=== PATIENT | male | born 1960 | race Caucasian/White ===

== ENCOUNTER → 2017-02-18 | Outpatient (CLI) | payer MEDICARE, MEDICAID ==
[~2017-02-18] MED LIST: AMLO-104 PO; AMLO-96 PO; ASPI-1471 PO; ATEN-1 PO; ATEN100T93 PO; ATOR40TA24 PO; BLOO-292 MC; CELE-1 PO; CLON-329 PO; CLOP75TA PO; DIAZ-308 PO; DUL20 PO; FENT-19 TD; HYDR-389 PO; HYDR-4228 PO; IBUP800T37 PO; INDO50CA92 PO; INSU100I30 SQ; ISOS30TA54 PO; KET10 PO; LEVO-85 PO; LISI-362 PO; LOR5/325 PO; LOSA100T67 PO; MELO-207 PO; METF-420 PO; METF500T4 PO; NPH,100V12 SQ; ONDA4TAB97 PO; OXYC-865 PO; OXYC-870 PO; PEN1DIS. MC; PRAM0.1225 PO; PRAM0.2524 PO; PROM-110 PO; RANI-324 PO; SYRI-1525 MC; TRAM-420 PO; TRAM100T22 PO; TRAZ-156 PO
[2017-02-18 18:01] LABS: LDL CHOLESTEROL 27 mg/dl
== END ==
LOC: LAB 16:29
PROVIDERS: ATTEND Emergency Medicine
DX: E11.9 Type 2 diabetes mellitus without complications (principal); R23.3 Spontaneous ecchymoses; I25.10 Atherosclerotic heart disease of native coronary artery without angina pectoris; E83.52 Hypercalcemia; J02.9 Acute pharyngitis, unspecified
CPT/HCPCS: 36415; 82040; 82164; 82247; 82310; 82374; 82435; 82465; 82550; 82565; 82947; 83036; 83718; 83970; 84075; 84132; 84155; 84295; 84450; 84460; 84478; 84520; 86140; 86225; 86703; 86706; 86707; 87340; 87350; 87880

== ENCOUNTER 2017-02-22 09:00 | Emergency (ER) | payer MEDICAID, MEDICARE ==
[~2017-02-22] VITALS: Ht 170.2 cm; Wt 74.8 kg
--- NOTE | 2017-02-22 09:32 | ER Report ---
History and Physical Time Seen By MD: 09:32 (JEFE NGO DO) HPI/ROS CHIEF COMPLAINT: NECK PAIN HISTORY OF PRESENT ILLNESS: Pt here today for evaluation of neck pain and stiffness. PT has long hx of back issues that he was told was degenerative disc ds. PT states this last week his neck has gotten worse. Pt denies any new trauma. Pt states usually is stiff on right side of neck and radiates to right shoulder but now has symptoms on left side as well with numbness going down his left tricep to elbow. no weakness. pt states he was seen by pcp on friday and is just waiting for his medicaid to come in to see specialist. Came to ed today due to unable to get comfortable dispite using his tramadol. REVIEW OF SYSTEMS: Constitutional: No fever, no chills. Eyes: No discharge. ENT: No sore throat. Cardiovascular: No chest pain, no palpitations. Respiratory: No cough, no shortness of breath. Gastrointestinal: No abdominal pain, no vomiting. Genitourinary: No hematuria. Musculoskeletal: + chronic back pain; + neck stiffness and pain Skin: No rashes. Neurological: No headache. + numbness to left tricep (JENIJEFE Cesar PANDA) Allergies: Coded Allergies: red dye (Verified Allergy, Severe, SOB/SWELLING/HIVES, 02/22/17) Penicillins (Verified Allergy, Unknown, HIVES, 02/22/17) Uncoded Allergies: RED CARMICHAEL (Allergy, Severe, HIVES/SOB/SWELLING, 08/31/16) Home Meds Active Scripts Nph, Human Insulin Isophane (NOVOLIN N) 100 Unit/1 Ml Vial, 35 UNIT SQ BID, #3 VIAL 11 Refills Take 35 units twice a day. Increase by 2 units twice a day until fasting glucose is 120 or less.Maximum of 100 a day. Prov:ERIKA TORREZ MD 02/20/17 Amlodipine Besylate (NORVASC) 10 Mg Tablet, 1 TAB PO QDAY, #30 TAB 11 Refills Prov:ERIKA TORREZ MD 02/18/17 Tramadol Hcl (TRAMADOL HCL) 50 Mg Tablet, 50-100 MG PO Q4-6H, #180 TAB Prov:ERIKA TORREZ MD 02/13/17 Pramipexole Di-Hcl (MIRAPEX) 0.25 Mg Tablet, 0.25 MG PO DAILY, #30 TAB 11 Refills Prov:ERIKA TORREZ MD 01/16/17 Atorvastatin Calcium (LIPITOR) 40 Mg Tablet, 1 TAB PO QDAY, #30 TAB 11 Refills Prov:ERIKA TORREZ MD 01/16/17 Meloxicam (MELOXICAM) 15 Mg Tablet, 15 MG PO QDAY, #30 TAB Prov:ERIKA TORREZ MD 01/06/17 True Metrix Glucose Test Strip (True Metrix Glucose Test Strip) 1 Each Strip, BOX MC 1-2XD, #1 11 Refills Prov:ERIKA TORREZ MD 12/11/16 Syringe & Needle,Insulin,1 Ml (INSULIN SYRINGE) 1 Each Disp.syrin, EACH MC, #60 11 Refills Administer insulin twice a day. Prov:ERIKA TORREZ MD 11/22/16 Lisinopril (LISINOPRIL) 10 Mg Tablet, 10 MG PO QDAY, #30 TAB 11 Refills Prov:ERIKA TORREZ MD 11/21/16 Metformin Hcl (METFORMIN HCL) 1,000 Mg Tablet, 1 TAB PO BID, #180 TAB 3 Refills Prov:ERIKA TORREZ MD 11/21/16 Trazodone Hcl (TRAZODONE HCL) 50 Mg Tablet, 1 TAB PO BID, #60 TAB 11 Refills Prov:ERIKA TORREZ MD 11/20/16 Atenolol (ATENOLOL) 100 Mg Tablet, 1 TAB PO QDAY, #90 TAB 3 Refills Prov:ERIKA TORREZ MD 11/20/16 Reported Medications Ondansetron Hcl (ZOFRAN) 4 Mg Tablet, 1-2 TAB PO Q8H Y for PRn, TAB 11/20/16 Clopidogrel Bisulfate (CLOPIDOGREL) 75 Mg Tablet, 1 TAB PO QDAY, TAB 11/20/16 Isosorbide Mononitrate (ISOSORBIDE MONONITRATE ER) 30 Mg Tab.er.24h, 1 TAB PO DAILY 11/20/16 Duloxetine Hcl (CYMBALTA) 20 Mg Capcr, 1 TAB PO QDAY, #5 CAP 11/20/16 Aspirin (ASPIR 81) 81 Mg Tablet.dr, 81 MG PO QDAY, TAB 12/17/13 Past Medical/Surgical History Pmhx: dm, htn, hyperlipid, cad, degenerative disc ds Pshx:non contrib (JENI,JEFE V ) Reviewed Nurses Notes: Yes Old Medical Records Reviewed: Yes (JEFE NGO DO) Hx Smoking: Yes Smoking Status: Current: Every Day Smoker Hx Substance Use Disorder: No Hx Alcohol Use: Yes (RARE) (JENI,JEFE V DO) Constitutional Vital Sign - Last 24 Hours 02/22/17 02/22/17 02/22/17 09:30 10:23 11:20 Temp 98.4 Pulse 80 66 68 Resp 16 16 16 B/P (MAP) 133/83 175/76 (109) 190/83 (118) Pulse Ox 96 94 95 O2 Delivery Room Air Room Air Room Air (NAVEEN MORELAND MD) Physical Exam General Appearance: The patient is alert, has no immediate need for airway protection and no signs of toxicity. Eyes: Pupils equal and round no pallor or injection, EOMI ENT: no pharyngeal erythema or exudates, Mucous membranes are moist Respiratory: There are no retractions, lungs are clear to auscultation. Cardiovascular: Regular rate and rhythm. pulses are equal and symmetrical Gastrointestinal: Abdomen is soft and non tender, no masses, bowel sounds normal, no guarding, no rigidity or rebound Neurological: Cranial nerves II-XII grossly intact, no sensory, minimal weakness of C7 on exam L Skin: Warm and dry, no rashes. Musculoskeletal: Neck tender paravertebral b/l with no midline vertebral tenderness Extremities are nontender, non swollen and have full range of motion. DIFFERENTIAL DIAGNOSIS: After history and physical exam differential diagnosis was considered for cervical radiculopathy, degenerative disc ds, arthriits, muscle spasms (JEFE NGO DO) Medical Decision Making EKG/Imaging Imaging FACILITY: [facility] PATIENT NAME: Flavio Mojica : 1960 MR: [id number] V: [id number] EXAM DATE: ORDERING PHYSICIAN: JEFE NGO TECHNOLOGIST: Location: [facility] [place] Patient: Flavio Mojica : 1960 Visit/Account:[id number] Date of Sevice: 02/22/2017 C-SPINE W/O CONTRAST HISTORY: Bilateral neck pain and stiffness COMPARISON STUDIES: CT scan 01/06/2012 TECHNIQUE: Axial images were obtained from the skull base through the upper thoracic spine without intravenous contrast. Coronal and sagittal reformatted images were obtained from the axial source data. One of the following dose optimization techniques was utilized in the performance of this exam: Automated exposure control; adjustment of the mA and/ or kV according to the patient's size; or use of an iterative reconstruction technique. Specific details can be referenced in the facility's radiology CT exam operational policy. FINDINGS: There is no acute fracture or dislocation of the cervical spine. Spondylitic changes are noted with facet arthropathy. At the C3-4 level, there is mild arthropathy. At the C5-6 level, there is a posterior discussed complex which causes bilateral moderate bilateral neural foraminal narrowing and mild canal stenosis. At the C6/7 level, there is at least mild bilateral neuroforaminal narrowing. Surrounding soft tissues lung apices are unremarkable. IMPRESSION: 1. No evidence for an acute fracture of the cervical spine. 2. Spondylitic changes are noted in the cervical spine worst at C5-6. If there is concern for cord or nerve root impingement, MRI is recommended. Report Dictated By: Wallace Mcneil MD at 02/22/2017 11:04 AM Report E-Signed By: Wallace Mcneil MD at 02/22/2017 11:12 AM WSN:[id number] (NAVEEN MORELAND MD) ED Course/Re-evaluation ED Course Will obtain CT. I suspect pt has degenerative disc ds and arthritis which is causing spasms and radiculopathy. Pt will require follow up by orthopedics or neurosurgery if that is true. Pt states he can not see either until his medicaid comes thru. Will give him names of our local orthopedics so he has it for follow up when ready. Decision to Disposition Date: Feb 22, 2017 (JEFE NGO DO) Decision to Disposition Date: Feb 22, 2017 Decision to Disposition Time: 11:25 (NAVEEN MORELAND MD) Depart Departure Latest Vital Signs Vital Signs Date Time Temp Pulse Resp B/P (MAP) Pulse Ox O2 Delivery O2 Flow Rate FiO2 02/22/17 11:20 68 16 190/83 (118) 95 Room Air 02/22/17 09:30 98.4 (NAVEEN MORELAND MD) Impression: Primary Impression: Cervical spondylitis with radiculitis Condition: Condition Unchanged Disposition: HOME OR SELF-CARE Referrals: ERIKA TORREZ MD (PCP) [facility] C:[facility] New Scripts Methocarbamol (ROBAXIN-750) 750 Mg Tablet 1500 MG PO QID for Muscle Relaxant, #20 TAB 0 Refills Prov: NAVEEN MORELAND MD 02/22/17 Hydrocodone Bit/Acetaminophen (HYDROCODON-ACETAMINOPHEN 5-325) 1 Each Tablet 1 EACH PO Q4-6H Y for PAIN, #12 TAB 0 Refills TAKE ONE TABLET BY MOUTH EVERY 4-6 HOURS NEEDED FOR PAIN Prov: NAVEEN MORELAND MD 02/22/17 Patient Instructions: Cervical Radiculopathy (ED) Additional Instructions: Schedule follow-up appointment with orthopedics at [facility] for further evaluation and possible treatment of your cervical radiculopathy JEFE NGO DO Feb 22, 2017 09:32 NAVEEN MORELAND MD Feb 22, 2017 11:28
[2017-02-22] MEDS ORDERED: ORPHENADRINE CITR 100 MG TABSR PO ONE (09:40)
[2017-02-22] MEDS ORDERED: APAP/HYDROCODONE 325/5 TAB PO ONE (09:40)
--- NOTE | 2017-02-22 11:15 | RADIOLOGY IMAGING REPORT ---
FACILITY: [facility] PATIENT NAME: Flavio Mojica : 1960 MR: [id number] V: [id number] EXAM DATE: ORDERING PHYSICIAN: JEFE NGO TECHNOLOGIST: Location: [facility] Patient: Flavio Mojica : 1960 Visit/Account:[id number] Date of Sevice: 02/22/2017 C-SPINE W/O CONTRAST HISTORY: Bilateral neck pain and stiffness COMPARISON STUDIES: CT scan 01/06/2012 TECHNIQUE: Axial images were obtained from the skull base through the upper thoracic spine without i ntravenous contrast. Coronal and sagittal reformatted images were obtained from the axial source data . One of the following dose optimization techniques was utilized in the performance of this exam: Autom ated exposure control; adjustment of the mA and/or kV according to the patient's size; or use of an i terative reconstruction technique. Specific details can be referenced in the facility's radiology C T exam operational policy. FINDINGS: There is no acute fracture or dislocation of the cervical spine. Spondylitic changes are noted with f acet arthropathy. At the C3-4 level, there is mild arthropathy. At the C5-6 level, there is a posterior discussed complex which causes bilateral moderate bilateral n eural foraminal narrowing and mild canal stenosis. At the C6/7 level, there is at least mild bilateral neuroforaminal narrowing. Surrounding soft tissues lung apices are unremarkable. IMPRESSION: 1. No evidence for an acute fracture of the cervical spine. 2. Spondylitic changes are noted in the cervical spine worst at C5-6. If there is concern for cord or nerve root impingement, MRI is recommended. Report Dictated By: Wallace Mcneil MD at 02/22/2017 11:04 AM Report E-Signed By: Wallace Mcneil MD at 02/22/2017 11:12 AM WSN:[id number]
[2017-02-22 11:20] VITALS: BP 190/83
[2017-02-22] MEDS ORDERED: METH-543 PO (11:27)
[2017-02-22] MEDS ORDERED: LOR5/325 PO (11:27)
[2017-02-25] MEDS ORDERED: META800T18 PO (13:23)
== END 2017-02-22 11:35 | disposition home or self-care (01) ==
LOC: ER 09:24
DX: M46.92 Unspecified inflammatory spondylopathy, cervical region (principal)
CPT/HCPCS: 72125; 99283; A9270; L0120

== ENCOUNTER 2017-09-06 11:48 | Emergency (ER) | payer MEDICARE, MEDICAID ==
[~2017-09-06 11:48] MED LIST changes: +CYCL10TA29 PO; +INDO-23 PO; -INDO50CA92 PO; +META800T18 PO; -METF-420 PO; +METF-421 PO; +METH-543 PO; -RANI-324 PO; +RANI-366 PO; -TRAM100T22 PO; +TRAM100T8 PO; -TRAZ-156 PO; +TRAZ50TA34 PO
[2017-09-06] MEDS ORDERED: TRAZ50TA34 PO (11:56)
[2017-09-06] MEDS ORDERED: ATEN-1 PO (11:56)
[2017-09-06] MEDS ORDERED: NIT4 SL (11:59)
[2017-09-06 12:30] VITALS: BP 162/78
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
--- NOTE | 2017-09-06 12:39 | RADIOLOGY IMAGING REPORT ---
FACILITY: [facility] PATIENT NAME: Flavio Mojica : 1960 MR: [id number] V: [id number] EXAM DATE: ORDERING PHYSICIAN: DAVID HI TECHNOLOGIST: [facility] Patient: Flavio Mojica : 1960 Visit/Account:[id number] Date of Sevice: 09/06/2017 Examination: WRIST RIGHT MIN 3 VIEW Comparison: 01/11/2014 History: wrist pain Findings: Chronic corticated fragment along the dorsal carpus. No acute fracture or malalignment. Mil d degenerative change at the radiocarpal joint and first carpometacarpal joint. No soft tissue abnorm ality. IMPRESSION: 1. No right wrist acute fracture or malalignment. 2. Mild degenerative change. Report Dictated By: Dejan Michaels MD at 09/06/2017 12:33 PM Report E-Signed By: Dejan Michaels MD at 09/06/2017 12:36 PM WSN:[id number]
== END 2017-09-06 13:13 | disposition home or self-care (01) ==
LOC: ER 11:52
DX: S60.212A Contusion of left wrist, initial encounter (principal); Y04.0XXA Assault by unarmed brawl or fight, initial encounter
CPT/HCPCS: 73110; 99283; L3908

== ENCOUNTER 2018-02-18 13:37 | Inpatient (IN) | payer MEDICAID, MEDICARE ==
[~2018-02-18] VITALS: Ht 177.8 cm; Wt 63.5 kg
[~2018-02-18 13:37] MED LIST changes: +AMLO-125 PO; -AMLO-96 PO; -LOSA100T67 PO; +LOSA100T75 PO; -METF-421 PO; +METF-452 PO; +NIT4 SL
--- NOTE | 2018-02-18 13:46 | ER Report ---
History and Physical Time Seen By MD: 13:46 HPI/ROS CHIEF COMPLAINT: Vomiting HISTORY OF PRESENT ILLNESS: 57-year-old male patient presents to emergency room with complaint of vomiting. Patient states that he has been throwing up for the past week. He patient states that he does not have any abdominal pain except when he becomes nauseated and vomits. Patient denies having any fevers, however he states he has been having chills. Patient states that he has been in a national study of CBD oil and has been out for the past 2 months. He states prior to that his blood sugar was doing great and he was coming off of his heart medication. Patient states that he has been having increased back pain as well as vomiting since he is not been taking the CBD oil. Patient states that during the time that he was involved in the study that his blood sugar was spot on. REVIEW OF SYSTEMS: Respiratory: No cough, no dyspnea. Cardiovascular: No chest pain, no palpitations. Gastrointestinal: As noted above Musculoskeletal: No back pain. Allergies: Coded Allergies: red dye (Verified Allergy, Severe, SOB/SWELLING/HIVES, 09/06/17) Penicillins (Verified Allergy, Unknown, HIVES, 09/06/17) Home Meds Reported Medications Atenolol (ATENOLOL) 50 Mg Tablet, 1 TAB PO BID, TAB 09/06/17 Discontinued Reported Medications Nitroglycerin (NITROSTAT) 0.4 Mg Subl, 0.4 MG SL Q5MIN PRN for PAIN 09/06/17 Trazodone Hcl (TRAZODONE HCL) 50 Mg Tablet, 50 MG PO QHS 09/06/17 Aspirin (ASPIR 81) 81 Mg Tablet.dr, 81 MG PO QDAY, TAB 12/17/13 Past Medical/Surgical History Patient has a past medical history of CVA, TIA, migraines, MD, hypertension, reflux, fractures, type 2 diabetes, rare alcohol use. Patient has a surgical history of skin graft, cardiac stents placed, back surgery, left knee and left rotator cuff surgery. Patient has a family medical history of stroke. Reviewed Nurses Notes: Yes Hx Smoking: Yes Smoking Status: Current: Every Day Smoker Hx Substance Use Disorder: No Hx Alcohol Use: Yes (RARE) Constitutional Vital Sign - Last 24 Hours 02/18/18 02/18/18 02/18/18 02/18/18 13:40 13:45 14:00 14:00 Temp 97.8 Pulse 108 Resp 20 B/P (MAP) 148/83 148/83 (104) 126/89 (101) Pulse Ox 86 O2 Delivery Room Air O2 Flow Rate 2.0 02/18/18 02/18/18 02/18/18 14:07 14:37 14:45 Pulse 95 83 B/P (MAP) 130/72 (91) Pulse Ox 95 97 Physical Exam General Appearance: The patient is alert, has no immediate need for airway protection and no current signs of toxicity. Respiratory: Chest is non tender, lungs are clear to auscultation. Cardiac: regular rate and rhythm Gastrointestinal: Abdomen is soft and non tender, no masses, bowel sounds normal. Musculoskeletal: Neck: Neck is supple and non tender. Extremities have full range of motion and are non tender. Skin: No rashes or lesions. DIFFERENTIAL DIAGNOSIS: After history and physical exam differential diagnosis was considered for hyperglycemia, DKA, gastroenteritis. Medical Decision Making Data Points Result Diagram: 02/18/18 1356 02/18/18 1356 Laboratory Hematology Test 02/18/18 13:42 02/18/18 13:56 02/18/18 14:15 Urine Color Colorless Urine Clarity Clear Urine pH 6.0 pH (4.8-9.5) Urine Specific [place] 1.027 Urine Protein Negative mg/dL (NEGATIVE) Urine Glucose (UA) 500 mg/dL (NEGATIVE) Urine Ketones Negative mg/dL (NEGATIVE) Urine Blood Negative (NEGATIVE) Urine Nitrite Negative (NEGATIVE) Urine Bilirubin Negative (NEGATIVE) Urine Urobilinogen Negative mg/dL (0.2-1.9) Urine Leukocyte Esterase Negative (NEGATIVE) Urine RBC None /HPF (0-2/HPF) Urine WBC <1 /HPF (0-5/HPF) Urine Squamous Epithelial Cells None /LPF (</=FEW) Urine Bacteria Negative /HPF (NONE-FEW) Urine Mucus None /HPF (NONE-FEW) Red Blood Count 5.75 M/uL (4.00-5.60) Mean Corpuscular Volume 84.2 fL (80.0-96.0) Mean Corpuscular Hemoglobin 28.7 pg (26.0-33.0) Mean Corpuscular Hemoglobin Concent 34.1 g/dL (32.0-36.0) Red Cell Distribution Width 13.1 % (11.5-14.5) Mean Platelet Volume 8.9 fL (7.2-11.1) Neutrophils (%) (Auto) 72.1 % (39.4-72.5) Lymphocytes (%) (Auto) 17.1 % (17.6-49.6) Monocytes (%) (Auto) 9.1 % (4.1-12.4) Eosinophils (%) (Auto) 1.2 % (0.4-6.7) Basophils (%) (Auto) 0.5 % (0.3-1.4) Nucleated RBC Relative Count (auto) 0.2 /100WBC Neutrophils # (Auto) 5.8 K/uL (2.0-7.4) Lymphocytes # (Auto) 1.4 K/uL (1.3-3.6) Monocytes # (Auto) 0.7 K/uL (0.3-1.0) Eosinophils # (Auto) 0.1 K/uL (0.0-0.5) Basophils # (Auto) 0.0 K/uL (0.0-0.1) Nucleated RBC Absolute Count (auto) 0.02 K/uL Sodium Level 125 mmol/L (137-145) Potassium Level 4.6 mmol/L (3.5-5.0) Chloride Level 83 mmol/L (98-107) Carbon Dioxide Level 26 mmol/L (22-30) Blood Urea Nitrogen 22 mg/dl (9-21) Creatinine 0.70 mg/dl (0.66-1.25) Glomerular Filtration Rate Calc > 60.0 Random Glucose 1012 mg/dl (75-110) Osmolality 322 mOSM/K (275-295) Calcium Level 9.7 mg/dl (8.4-10.2) Total Bilirubin 0.4 mg/dl (0.2-1.3) Aspartate Amino Transf (AST/SGOT) 25 U/L (0-35) Alanine Aminotransferase (ALT/SGPT) 23 U/L (0-56) Alkaline Phosphatase 184 U/L (0-126) Total Protein 8.3 g/dl (6.3-8.2) Albumin 4.0 g/dl (3.5-5.0) Acetone, Qualitative Negative Blood Gas Puncture Site Left radial Blood Gas Patient Temperature 97.8 DEGREES Arterial Blood pH 7.45 (7.35-7.45) Arterial Blood Partial Pressure CO2 36 mmHg (32-37) Arterial Blood Partial Pressure O2 74 mmHg (60-80) Arterial Blood HCO3 25 mmol/L (20-26) Arterial Blood Oxygen Saturation 96 % (92-100) Arterial Blood Base Excess 1.0 mmol/L Efrem Test Acceptable Oxygen Liters/Minute 28% Chemistry Test 02/18/18 13:42 02/18/18 13:56 02/18/18 14:15 Urine Color Colorless Urine Clarity Clear Urine pH 6.0 pH (4.8-9.5) Urine Specific [place] 1.027 Urine Protein Negative mg/dL (NEGATIVE) Urine Glucose (UA) 500 mg/dL (NEGATIVE) Urine Ketones Negative mg/dL (NEGATIVE) Urine Blood Negative (NEGATIVE) Urine Nitrite Negative (NEGATIVE) Urine Bilirubin Negative (NEGATIVE) Urine Urobilinogen Negative mg/dL (0.2-1.9) Urine Leukocyte Esterase Negative (NEGATIVE) Urine RBC None /HPF (0-2/HPF) Urine WBC <1 /HPF (0-5/HPF) Urine Squamous Epithelial Cells None /LPF (</=FEW) Urine Bacteria Negative /HPF (NONE-FEW) Urine Mucus None /HPF (NONE-FEW) White Blood Count 8.1 k/uL (4.5-11.0) Red Blood Count 5.75 M/uL (4.00-5.60) Hemoglobin 16.5 g/dL (14.0-18.0) Hematocrit 48.4 % (42.0-52.0) Mean Corpuscular Volume 84.2 fL (80.0-96.0) Mean Corpuscular Hemoglobin 28.7 pg (26.0-33.0) Mean Corpuscular Hemoglobin Concent 34.1 g/dL (32.0-36.0) Red Cell Distribution Width 13.1 % (11.5-14.5) Platelet Count 276 K/uL (150-450) Mean Platelet Volume 8.9 fL (7.2-11.1) Neutrophils (%) (Auto) 72.1 % (39.4-72.5) Lymphocytes (%) (Auto) 17.1 % (17.6-49.6) Monocytes (%) (Auto) 9.1 % (4.1-12.4) Eosinophils (%) (Auto) 1.2 % (0.4-6.7) Basophils (%) (Auto) 0.5 % (0.3-1.4) Nucleated RBC Relative Count (auto) 0.2 /100WBC Neutrophils # (Auto) 5.8 K/uL (2.0-7.4) Lymphocytes # (Auto) 1.4 K/uL (1.3-3.6) Monocytes # (Auto) 0.7 K/uL (0.3-1.0) Eosinophils # (Auto) 0.1 K/uL (0.0-0.5) Basophils # (Auto) 0.0 K/uL (0.0-0.1) Nucleated RBC Absolute Count (auto) 0.02 K/uL Glomerular Filtration Rate Calc > 60.0 Osmolality 322 mOSM/K (275-295) Calcium Level 9.7 mg/dl (8.4-10.2) Total Bilirubin 0.4 mg/dl (0.2-1.3) Aspartate Amino Transf (AST/SGOT) 25 U/L (0-35) Alanine Aminotransferase (ALT/SGPT) 23 U/L (0-56) Alkaline Phosphatase 184 U/L (0-126) Total Protein 8.3 g/dl (6.3-8.2) Albumin 4.0 g/dl (3.5-5.0) Acetone, Qualitative Negative Blood Gas Puncture Site Left radial Blood Gas Patient Temperature 97.8 DEGREES Arterial Blood pH 7.45 (7.35-7.45) Arterial Blood Partial Pressure CO2 36 mmHg (32-37) Arterial Blood Partial Pressure O2 74 mmHg (60-80) Arterial Blood HCO3 25 mmol/L (20-26) Arterial Blood Oxygen Saturation 96 % (92-100) Arterial Blood Base Excess 1.0 mmol/L Efrem Test Acceptable Oxygen Liters/Minute 28% Toxicology Test 02/18/18 13:56 Acetone, Qualitative Negative Urinalysis Test 02/18/18 13:42 Urine Color Colorless Urine Clarity Clear Urine pH 6.0 pH (4.8-9.5) Urine Specific [place] 1.027 Urine Protein Negative mg/dL (NEGATIVE) Urine Glucose (UA) 500 mg/dL (NEGATIVE) Urine Ketones Negative mg/dL (NEGATIVE) Urine Blood Negative (NEGATIVE) Urine Nitrite Negative (NEGATIVE) Urine Bilirubin Negative (NEGATIVE) Urine Urobilinogen Negative mg/dL (0.2-1.9) Urine Leukocyte Esterase Negative (NEGATIVE) Urine RBC None /HPF (0-2/HPF) Urine WBC <1 /HPF (0-5/HPF) Urine Squamous Epithelial Cells None /LPF (</=FEW) Urine Bacteria Negative /HPF (NONE-FEW) Urine Mucus None /HPF (NONE-FEW) EKG/Imaging Imaging Exam type: ACUTE ABDOMEN SERIES 3 VIEW History: vomiting Comparison: Two-view chest July 06, 2015. Findings: PA view the chest demonstrates no evidence of focal infiltrates pleural effusions or pulmonary edema. The cardiac silhouette is normal in size. Supine and upright views of the abdomen demonstrates a small air-fluid level within the stomach. The bowel gas pattern is otherwise nonspecific. There is no gross evidence of organomegaly or pathologic intra-abdominal calcifications. There are spondylotic changes lower lumbar spine IMPRESSION: 1. Small air-fluid level noted in the stomach. Bowel gas pattern is otherwise nonspecific Report Dictated By: Isabel Weiss MD at 02/18/2018 2:54 PM Report E-Signed By: Isabel Weiss MD at 02/18/2018 2:56 PM Exam type: L-SPINE >4 VIEWS History: Vomiting, abdomen pain, back pain x10 days Comparison: None. Findings: There are five nonrib-bearing lumbar-type vertebral bodies present. There is straightening of normal size lumbar lordosis. There are severe disc space narrowing with fusion of the L3-4 vertebral bodies. There are severe disc space narrowing is cirrhosis of the adjacent endplates and small anterior osteophytes at L4-5. No subluxations are identified there are moderate degenerative changes of the facet joints from L3 through S1. Vascular calcifications are noted in the abdominal aorta IMPRESSION: 1. Straightening of the normal lumbar lordosis which can be seen with muscle spasm Extensive spondylotic changes most prominent from L3 to S1 Report Dictated By: Isabel Weiss MD at 02/18/2018 2:51 PM Report E-Signed By: Isabel Weiss MD at 02/18/2018 2:54 PM ED Course/Re-evaluation ED Course Patient was admitted to an exam room, history and physical obtained. Di fferential diagnoses were considered. On exam lungs are clear, heart is regular, abdomen soft nontender. A blood glucose was measured on arrival in the emergency room and was read high on the glucometer. CMP showed patient had a sodium of 125, a chloride of 83 and a blood sugar of 1012. Patient was in the process of getting a liter of normal saline. I did call and discuss the case with Dr. Cabrera, hospitalist, who agreed to accept the patient for admission with a diagnosis of hyperglycemia. Urinalysis showed 500 mg of glucose in the urine. Patient had no elevated white count. I believe the underlying cause of his vomiting is his hyperglycemia. A x-ray of the abdomen as well as of the low back showed no acute findings. Patient verbalized understanding and agreement with plan to be admitted to the hospital. I did discuss with Dr. Cabrera about starting the patient on an insulin drip and he said to go ahead and continue giving fluid and he would take care of that when the patient got to the floor. Decision to Disposition Date: Feb 18, 2018 Decision to Disposition Time: 14:48 Depart Departure Latest Vital Signs Vital Signs Date Time Temp Pulse Resp B/P (MAP) Pulse Ox O2 Delivery O2 Flow Rate FiO2 02/18/18 14:45 130/72 (91) 02/18/18 14:37 83 97 02/18/18 14:00 2.0 02/18/18 13:40 97.8 20 Room Air Impression: Primary Impression: Hyperglycemia due to type 2 diabetes mellitus Additional Impression: Vomiting Condition: Condition Unchanged Disposition: Admitted from ER Referrals: ERIKA TORREZ MD (PCP) Problem Qualifiers Primary Impression: Hyperglycemia due to type 2 diabetes mellitus Diabetes mellitus penitentiary insulin use: without penitentiary use Qualified Codes: E11.65 - Type 2 diabetes mellitus with hyperglycemia Additional Impression: Vomiting Vomiting type: unspecified Vomiting Intractability: non-intractable Nause a presence: with nausea Qualified Codes: R11.2 - Nausea with vomiting, unspecified DAVID HI BOTTLING LINE ATTENDANT Feb 18, 2018 13:46
[2018-02-18] MEDS ORDERED: NS(*) 0.9% 1000 ML BAG 1,000 ML IV ONE ×2 (13:50→14:50)
[2018-02-18 14:12] LABS: PLATELET COUNT, AUTOMATED 276 K/uL (150-450)
--- NOTE | 2018-02-18 14:58 | RADIOLOGY IMAGING REPORT ---
FACILITY: [facility] PATIENT NAME: Flavio Mojica : 1960 MR: [id number] V: [id number] EXAM DATE: ORDERING PHYSICIAN: DAVID HI TECHNOLOGIST: [place] [facility] [place] Flavio Mojica : 1960 Visit/Account:[id number] Date of Sevice: 02/18/2018 Exam type: L-SPINE >4 VIEWS History: Vomiting, abdomen pain, back pain x10 days Comparison: None. Findings: There are five nonrib-bearing lumbar-type vertebral bodies present. There is straightening of normal size lumbar lordosis. There are severe disc space narrowing with fusion of the L3-4 vertebral carlos s. There are severe disc space narrowing is cirrhosis of the adjacent endplates and small anterior o steophytes at L4-5. No subluxations are identified there are moderate degenerative changes of the fa cet joints from L3 through S1. Vascular calcifications are noted in the abdominal aorta IMPRESSION: 1. Straightening of the normal lumbar lordosis which can be seen with muscle spasm Extensive spondylotic changes most prominent from L3 to S1 Report Dictated By: Isabel Weiss MD at 02/18/2018 2:51 PM Report E-Signed By: Isabel Weiss MD at 02/18/2018 2:54 PM WSN:[email or web address]
--- NOTE | 2018-02-18 15:00 | RADIOLOGY IMAGING REPORT ---
[place] [facility] [place] Flavio Mojica : 1960 MR: [id number] V: [id number] EXAM DATE: ORDERING PHYSICIAN: DAVID HI TECHNOLOGIST: Location: [facility] [place] Patient: Flavio Mojica : 1960 Visit/Account:[id number] Date of Sevice: 02/18/2018 Exam type: ACUTE ABDOMEN SERIES 3 VIEW History: vomiting Comparison: Two-view chest July 06, 2015. Findings: PA view the chest demonstrates no evidence of focal infiltrates pleural effusions or pulmonary edema. The cardiac silhouette is normal in size. Supine and upright views of the abdomen demonstrates a small air-fluid level within the stomach. The bowel gas pattern is otherwise nonspecific. There is no gross evidence of organomegaly or pathologi c intra-abdominal calcifications. There are spondylotic changes lower lumbar spine IMPRESSION: 1. Small air-fluid level noted in the stomach. Bowel gas pattern is otherwise nonspecific Report Dictated By: Isabel Weiss MD at 02/18/2018 2:54 PM Report E-Signed By: Isabel Weiss MD at 02/18/2018 2:56 PM WSN:[email or web address]
[2018-02-18 15:29] VITALS: BP 169/77
[2018-02-18 16:00] VITALS: BP 164/86
--- NOTE | 2018-02-18 16:16 | History & Physical ---
History of Present Illness Chief Complaint Nausea History of Present Illness This patient presented to the emergency room complaining of nausea. He reports that he has been unable to eat or drink over the past few weeks. He is a diabetic, but stopped taking all of his medications after enrolling in a cannabis trial for his diabetes. History Problems: (1) Essential hypertension (2) CAD (coronary artery disease) (3) IA (myocardial infarction) (4) DM2 (diabetes mellitus, type 2) (5) TIA (transient ischemic attack) Status: Chronic Home Meds Reported Medications Atenolol (ATENOLOL) 50 Mg Tablet, 1 TAB PO BID, TAB 09/06/17 Discontinued Reported Medications Nitroglycerin (NITROSTAT) 0.4 Mg Subl, 0.4 MG SL Q5MIN PRN for PAIN 09/06/17 Trazodone Hcl (TRAZODONE HCL) 50 Mg Tablet, 50 MG PO QHS 09/06/17 Aspirin (ASPIR 81) 81 Mg Tablet.dr, 81 MG PO QDAY, TAB 12/17/13 Allergies: Coded Allergies: red dye (Verified Allergy, Severe, SOB/SWELLING/HIVES, 09/06/17) Penicillins (Verified Allergy, Unknown, HIVES, 09/06/17) Hx Smoking: Yes Smoking Status: Current: Every Day Smoker Hx Alcohol Use: Yes (RARE) Social Drug Use: Former Social Drugs: Marijuana Review of Systems All Systems Reviewed/Normal: Yes, Except as Noted Gastrointestinal: Nausea Exam Vital Signs Vital Signs Date Time Temp Pulse Resp B/P (MAP) Pulse Ox O2 Delivery O2 Flow Rate FiO2 02/18/18 15:29 98.2 91 12 169/77 (107) 96 Room Air 02/18/18 14:00 2.0 Neuro: No Gross deficits Eyes: PERRLA Cardiovascular: Regular Rate and Rhythm Respiratory: Clear to Auscultation GI: Abd Soft and Non-Tender Extremities: No Edema Integumentary: No Cyanosis Medical Decision Making Data Points Result Diagram: 02/18/18 1356 02/18/18 1356 EKG / Imaging Imaging Abdominal x-rays reviewed. Assessment and Plan Problems: (1) Hyperglycemic crisis in diabetes mellitus Assessment & Plan: He did present with a glucose >1000, but no significant acidosis. He has been started on IV insulin and fluid resuscitation. (2) DM2 (diabetes mellitus, type 2) Assessment & Plan: He was previously on insulin and metformin, but stopped these after enrolling in a cannabis trial. (3) CAD (coronary artery disease) Assessment & Plan: He does have a history of IA. (4) Essential hypertension Assessment & Plan: He is on chronic treatment with atenolol. Venous Thromboembolism Antithrombotics Is Pt On Any Antithrombotics?: No Exam Sepsis Risk: No Definite Risk ADALI RIOS DO Feb 18, 2018 16:16
[2018-02-18] MEDS ORDERED: KCL/D1/2NS 20 MEQ 1000 ML 1,000 ML IV SCH ×3 (16:20→20:10)
[2018-02-18] MEDS ORDERED: INS HUM REG* 100 U/ML(ER ONLY) 100 UNIT in NS(*) 0.9% 100 ML BAG 99 ML IV SCH (16:30)
[2018-02-18] MEDS ORDERED: KCL/NS* 20 MEQ/1000 ML PREMIX 1,000 ML IV SCH (16:40)
[2018-02-18 17:00] VITALS: BP 182/84
[2018-02-18 18:00] VITALS: BP 164/64
[2018-02-18 19:00] VITALS: BP 161/77
[2018-02-18] MEDS ORDERED: CALCIUM CARBONATE 500 MG CHEW PO PRN (20:45)
[2018-02-18] MEDS ORDERED: ZOLPIDEM TARTRATE 10 MG TAB PO SCH (21:00)
--- NOTE | 2018-02-18 21:59 | Hospitalist Depart ---
Discharge Summary Reason for Hosp/Final Diag: (1) Hyperglycemic crisis in diabetes mellitus Hospital Course & Plan: He did present with a glucose >1000, but no significant acidosis. He was started on IV insulin and fluid resuscitation. His sugars were improving as expected, but he disconnected himself from the monitors/IV's and requested to sign out against medical advice before treatment could be completed. (2) DM2 (diabetes mellitus, type 2) Hospital Course & Plan: He was previously on insulin and metformin, but stopped these after enrolling in a cannabis trial. (3) CAD (coronary artery disease) Hospital Course & Plan: He does have a history of MA. (4) Essential hypertension Hospital Course & Plan: He is on chronic treatment with atenolol. Departure Latest Vital Signs Vital Signs 02/18/18 02/18/18 19:00 20:00 Temp 98.6 Pulse 89 Resp 17 B/P (MAP) 161/77 (105) Pulse Ox 94 O2 Delivery Room Air O2 Flow Rate 2.0 Weight (Pounds): 140 Result Diagram: 02/18/18 1356 02/18/18 6881 Condition: Improved Discharge: Home, Self Care Discharge Instructions Home Meds Reported Medications Atenolol (ATENOLOL) 50 Mg Tablet, 1 TAB PO BID, TAB 09/06/17 Discontinued Reported Medications Nitroglycerin (NITROSTAT) 0.4 Mg Subl, 0.4 MG SL Q5MIN PRN for PAIN 09/06/17 Trazodone Hcl (TRAZODONE HCL) 50 Mg Tablet, 50 MG PO QHS 09/06/17 Aspirin (ASPIR 81) 81 Mg Tablet., 81 MG PO QDAY, TAB 12/17/13 Diet: Diabetic Activity: As Tolerated Venous Thromboembolism Antithrombotics Is Pt On Any Antithrombotics?: No ADALI RIOS DO Feb 18, 2018 21:59
[2018-02-22] MEDS ORDERED: INFLUENZA VIRUS VAC 0.5ML SYR IM ONLY ONE (09:00)
== END 2018-02-18 21:50 | disposition left against medical advice (07) | DRG 639 ==
LOC: ER 13:43 → MED 14:57 → ICU 15:45
PROVIDERS: ADMIT Family Medicine; ATTEND Family Medicine
DX: E11.65 Type 2 diabetes mellitus with hyperglycemia (principal); I10 Essential (primary) hypertension; K21.9 Gastro-esophageal reflux disease without esophagitis; F17.210 Nicotine dependence, cigarettes, uncomplicated; I25.10 Atherosclerotic heart disease of native coronary artery without angina pectoris; I25.2 Old myocardial infarction; Z86.73 Personal history of transient ischemic attack (TIA), and cerebral infarction without residual deficits; Z95.5 Presence of coronary angioplasty implant and graft; Z88.0 Allergy status to penicillin; Z53.29 Procedure and treatment not carried out because of patient's decision for other reasons
CPT/HCPCS: 36415; 36416; 36600; 72120; 74022; 81001; 82009; 82040; 82247; 82310; 82374; 82435; 82565; 82803; 82947; 82948; 83930; 84075; 84132; 84155; 84295; 84450; 84460; 84520; 85025; 96360; 99284; J1815; J3480; J7030; J7050

== ENCOUNTER 2018-04-10 20:23 | Emergency (ER) | payer MEDICARE ==
--- NOTE | 2018-04-10 20:28 | ER Report ---
History and Physical Time Seen By MD: 20:27 HPI/ROS CHIEF COMPLAINT: Palpitations, anxiety HISTORY OF PRESENT ILLNESS: 57-year-old male with a known history of palpitations and anxiety. Patient's previously on atenolol 50 mg per day. He ran out 3 weeks ago. Apparently he states he was discharged from his primary care practice of . She states since he awoke this morning. He's been feeling anxious and nervous. He feels his heart pounding throughout the day. He denies any chest pain, diaphoresis, shortness of breath or near-syncope sensation. REVIEW OF SYSTEMS: Respiratory: No cough, no dyspnea. Cardiovascular: As above Gastrointestinal: No vomiting, no abdominal pain. Musculoskeletal: No back pain. Allergies: Coded Allergies: red dye (Verified Allergy, Severe, SOB/SWELLING/HIVES, 04/10/18) Penicillins (Verified Allergy, Unknown, HIVES, 04/10/18) Home Meds Active Scripts Lorazepam (ATIVAN) 1 Mg Tablet, 1 MG PO Q8H PRN for ANXIEETY, #8 Prov:PELON PRABHAKAR DO 04/10/18 Atenolol (ATENOLOL) 50 Mg Tablet, 1 TAB PO BID for bp CONTROL, #60 TAB Prov:PELON PRABHAKAR 04/10/18 Reported Medications Atenolol (ATENOLOL) 50 Mg Tablet, 1 TAB PO BID, TAB 09/06/17 Past Medical/Surgical History Patient has a past medical history of CVA, TIA, migraines, [place], hypertension, reflux, fractures, type 2 diabetes, rare alcohol use. Patient has a surgical history of skin graft, cardiac stents placed, back surgery, left knee and left rotator cuff surgery. Patient has a family medical history of stroke. Reviewed Nurses Notes: Yes Old Medical Records Reviewed: Yes Hx Smoking: Yes (46years) Smoking Status: Current: Every Day Smoker, Light Tobacco Smoker Hx Substance Use Disorder: No Hx Alcohol Use: No (RARE) Constitutional Vital Sign - Last 24 Hours 04/10/18 04/10/18 04/10/18 04/10/18 20:27 20:29 20:38 20:53 Temp 98.3 Pulse 146 150 147 Resp 16 20 30 B/P (MAP) 95/62 95/62 (73) Pulse Ox 93 92 92 O2 Delivery Room Air 04/10/18 04/10/18 04/10/18 04/10/18 21:00 21:08 21:20 21:23 Pulse 140 134 Resp 23 23 B/P (MAP) 106/74 (85) 113/68 (83) Pulse Ox 91 91 04/10/18 04/10/18 04/10/18 04/10/18 21:38 21:40 21:53 22:00 Pulse 114 Resp 40 23 B/P (MAP) 126/77 (93) 106/61 (76) Pulse Ox 92 93 04/10/18 04/10/18 04/10/18 04/10/18 22:08 22:10 22:20 22:25 Pulse 102 100 92 Resp 18 29 B/P (MAP) 107/67 (80) Pulse Ox 93 93 Intake and Output 04/10/18 04/10/18 04/11/18 15:00 23:00 07:00 Intake Total 1000 ml Balance 1000 ml Physical Exam General Appearance: The patient is alert, has no immediate need for airway protection and no current signs of toxicity. Vital signs stable, tachycardic to 150s, afebrile, pulse ox normal, no acute distress, skin warm, dry, pink HEENT: Pupils equal and round no injection. TMs normal, oropharynx without redness or exudate, mucous members are moist Respiratory: Chest is non tender, lungs are clear to auscultation. Cardiac: regular rate and rhythm. Tachycardic rhythm without murmur Gastrointestinal: Abdomen is soft and non tender, no masses, bowel sounds normal. Musculoskeletal: Neck: Neck is supple and non tender. No lymphadenopathy, no thyromegaly noted Extremities have full range of motion and are non tender. No edema, no calf tenderness, negative Homans sign Skin: No rashes or lesions. DIFFERENTIAL DIAGNOSIS: After history and physical exam differential diagnosis was considered for chest pain including but not limited to myocardial ischemia, pericarditis pulmonary embolus, chest wall pain, pleural inflammation and pulmonary infectious causes. Anxiety, panic attack, atenolol withdrawal Medical Decision Making Data Points Result Diagram: 04/10/18203904/10/182039 Laboratory Hematology Test 04/10/18 20:40 04/10/18 22:41 Red Blood Count 6.08 M/uL (4.00-5.60) Mean Corpuscular Volume 82.9 fL (80.0-96.0) Mean Corpuscular Hemoglobin 28.4 pg (26.0-33.0) Mean Corpuscular Hemoglobin Concent 34.3 g/dL (32.0-36.0) Red Cell Distribution Width 14.2 % (11.5-14.5) Mean Platelet Volume 8.9 fL (7.2-11.1) Neutrophils (%) (Auto) 81.3 % (39.4-72.5) Lymphocytes (%) (Auto) 12.8 % (17.6-49.6) Monocytes (%) (Auto) 5.3 % (4.1-12.4) Eosinophils (%) (Auto) 0.1 % (0.4-6.7) Basophils (%) (Auto) 0.5 % (0.3-1.4) Nucleated RBC Relative Count (auto) 0.2 /100WBC Neutrophils # (Auto) 10.3 K/uL (2.0-7.4) Lymphocytes # (Auto) 1.6 K/uL (1.3-3.6) Monocytes # (Auto) 0.7 K/uL (0.3-1.0) Eosinophils # (Auto) 0.0 K/uL (0.0-0.5) Basophils # (Auto) 0.1 K/uL (0.0-0.1) Nucleated RBC Absolute Count (auto) 0.03 K/uL Sodium Level 135 mmol/L (137-145) Potassium Level 4.7 mmol/L (3.5-5.0) Chloride Level 98 mmol/L (98-107) Carbon Dioxide Level 18 mmol/L (22-30) Blood Urea Nitrogen 18 mg/dl (9-21) Creatinine 0.90 mg/dl (0.66-1.25) Glomerular Filtration Rate Calc > 60.0 Random Glucose 517 mg/dl (75-110) Calcium Level 10.1 mg/dl (8.4-10.2) Total Bilirubin 0.3 mg/dl (0.2-1.3) Aspartate Amino Transf (AST/SGOT) 20 U/L (0-35) Alanine Aminotransferase (ALT/SGPT) 22 U/L (0-56) Alkaline Phosphatase 129 U/L (0-126) Troponin I < 0.012 ng/ml B-Type Natriuretic Peptide 25 pg/ml (0-100) Total Protein 8.7 g/dl (6.3-8.2) Albumin 4.7 g/dl (3.5-5.0) Whole Blood Glucose 383 mg/DL (75-110) Chemistry Test 04/10/18 20:40 04/10/18 22:41 White Blood Count 12.7 k/uL (4.5-11.0) Red Blood Count 6.08 M/uL (4.00-5.60) Hemoglobin 17.3 g/dL (14.0-18.0) Hematocrit 50.4 % (42.0-52.0) Mean Corpuscular Volume 82.9 fL (80.0-96.0) Mean Corpuscular Hemoglobin 28.4 pg (26.0-33.0) Mean Corpuscular Hemoglobin Concent 34.3 g/dL (32.0-36.0) Red Cell Distribution Width 14.2 % (11.5-14.5) Platelet Count 218 K/uL (150-450) Mean Platelet Volume 8.9 fL (7.2-11.1) Neutrophils (%) (Auto) 81.3 % (39.4-72.5) Lymphocytes (%) (Auto) 12.8 % (17.6-49.6) Monocytes (%) (Auto) 5.3 % (4.1-12.4) Eosinophils (%) (Auto) 0.1 % (0.4-6.7) Basophils (%) (Auto) 0.5 % (0.3-1.4) Nucleated RBC Relative Count (auto) 0.2 /100WBC Neutrophils # (Auto) 10.3 K/uL (2.0-7.4) Lymphocytes # (Auto) 1.6 K/uL (1.3-3.6) Monocytes # (Auto) 0.7 K/uL (0.3-1.0) Eosinophils # (Auto) 0.0 K/uL (0.0-0.5) Basophils # (Auto) 0.1 K/uL (0.0-0.1) Nucleated RBC Absolute Count (auto) 0.03 K/uL Glomerular Filtration Rate Calc > 60.0 Calcium Level 10.1 mg/dl (8.4-10.2) Total Bilirubin 0.3 mg/dl (0.2-1.3) Aspartate Amino Transf (AST/SGOT) 20 U/L (0-35) Alanine Aminotransferase (ALT/SGPT) 22 U/L (0-56) Alkaline Phosphatase 129 U/L (0-126) Troponin I < 0.012 ng/ml B-Type Natriuretic Peptide 25 pg/ml (0-100) Total Protein 8.7 g/dl (6.3-8.2) Albumin 4.7 g/dl (3.5-5.0) Whole Blood Glucose 383 mg/DL (75-110) ED Course/Re-evaluation Clinical Indication for ER IV: Hydration, IV Access ED Course Patient was admitted to an examination room. H&P was done. The differential diagnoses was considered. On clinical examination, patient appears anxious with anxiety symptoms. He is tachycardic to the 150s. Patient admits he ran out of his atenolol 3 weeks ago. Patient was given atenolol 50 no grams by mouth, Ativan 1 mg IV. EKG was performed which shows sinus tachycardia without evidence of ischemia. There is no significant change from old EKGs. Patient's heart rate came down into the 80s. He was feeling much better after observation. He also his blood sugar came back at 571. He was given 10 units of regular insulin IV push and 2 L of normal saline. Patient's blood sugar came down to 371. Patient admits he is struggling to afford his NPH insulin twice a day. Patient states he takes atenolol 50 mg twice a day. A prescription was provided for a one-month supply. Patient advised to follow-up with primary care next week for blood pressure recheck Decision to Disposition Date: Apr 10, 2018 Decision to Disposition Time: 22:06 Depart Departure Latest Vital Signs Vital Signs Date Time Temp Pulse Resp B/P (MAP) Pulse Ox O2 Delivery O2 Flow Rate FiO2 04/10/18 22:25 92 04/10/18 22:20 107/67 (80) 04/10/18 22:10 29 93 04/10/18 20:27 98.3 Room Air Impression: Primary Impression: Hyperglycemia due to type 2 diabetes mellitus Additional Impressions: Palpitations Tachycardia Panic attack Condition: Improved Disposition: HOME OR SELF-CARE Referrals: WEFEL,BHAKTI MD New Scripts Lorazepam (ATIVAN) 1 Mg Tablet 1 MG PO Q8H PRN for ANXIEETY, #8 Prov: PELON PRABHAKAR DO 04/10/18 Atenolol (ATENOLOL) 50 Mg Tablet 1 TAB PO BID for bp CONTROL, #60 TAB Prov: PELON PRABHAKAR DO 04/10/18 Patient Instructions: Diabetic Hyperglycemia (ED), Panic Attack (ED) Additional Instructions: Take medications as prescribed by your primary care physician Follow-up with your primary care physician for recheck within one week Problem Qualifiers Primary Impression: Hyperglycemia due to type 2 diabetes mellitus Diabetes mellitus fpc insulin use: with fpc use Qualified Codes: E11.65 - Type 2 diabetes mellitus with hyperglycemia; Z79.4 - skilled nursing (current) use of insulin PELON PRABHAKAR DO Apr 10, 2018 20:28
[2018-04-10] MEDS ORDERED: ATENOLOL 50 MG TAB PO ONE (20:40)
[2018-04-10] MEDS ORDERED: LORazepam 2 MG/ML VIAL IVP ONE (20:40)
[2018-04-10 20:47] LABS: PLATELET COUNT, AUTOMATED 218 K/uL (150-450)
[2018-04-10] MEDS ORDERED: INSU HUM REG 100 U/ML(ER ONLY) 10 ML VIAL IVP ONE (21:05)
[2018-04-10] MEDS ORDERED: NS(*) 0.9% 1000 ML BAG 1,000 ML IV ONE (21:10)
--- NOTE | 2018-04-10 21:35 | RADIOLOGY IMAGING REPORT ---
FACILITY: [facility] - [place] PATIENT NAME: Flavio Mojica : 1960 MR: [id number] V: [id number] EXAM DATE: ORDERING PHYSICIAN: PELON PRABHAKAR TECHNOLOGIST: Location: [facility] - [place] Patient: Flavio Mojica : 1960 Visit/Account:[id number] Date of Sevice: 04/10/2018 CHEST SINGLE AP Indication: Chest pain.. Comparison: 07/06/2015. Findings: Cardiomediastinal silhouette and pulmonary vessels within normal limits. Coronary artery calcificatio n versus stent. There is no focal infiltrate or lobar consolidation. No pneumothorax or pleural effusion. No nodule. Upper abdomen is unremarkable. No acute bony abnormality. IMPRESSION: 1. No acute cardiopulmonary process. Report Dictated By: Wallace Rogers at 04/10/2018 9:28 PM Report E-Signed By: Wallace Rogers at 04/10/2018 9:30 PM WSN:[id number]
--- NOTE | 2018-04-10 22:14 | EKG ---
FACILITY: [facility] PATIENT NAME: EDIE BALLARD : [id number] MR: [id number] V: [id number] EXAM DATE: ORDERING PHYSICIAN: PELON PRABHAKAR TECHNOLOGIST: JEFF Jones Reason : Blood Pressure : / mmHG Vent. Rate : 143 BPM Atrial Rate : 143 BPM P-R Int : 132 ms QRS Dur : 078 ms QT Int : 286 ms P-R-T Axes : 069 029 077 degrees QTc Int : 441 ms Sinus tachycardia Otherwise normal ECG When compared with ECG of 20-NOV-2016 14:25, No significant change was found Confirmed by DEBBIE MIRANDA ([id number]) on 04/10/2018 10:34:51 PM Referred By: Confirmed By:DEBBIE MIRANDA
[2018-04-10 22:20] VITALS: BP 107/67
[2018-04-10] MEDS ORDERED: ATEN-1 PO (22:27)
[2018-04-10] MEDS ORDERED: LORA-1456 PO (22:27)
== END 2018-04-10 22:41 | disposition home or self-care (01) ==
LOC: ER 20:44
DX: E11.65 Type 2 diabetes mellitus with hyperglycemia (principal); R00.2 Palpitations; R00.0 Tachycardia, unspecified; F41.0 Panic disorder [episodic paroxysmal anxiety]; I10 Essential (primary) hypertension; R07.89 Other chest pain
CPT/HCPCS: 36416; 71045; 82948; 83880; 84484; 85025; 93005; 96361; 96374; 96375; 99284; A9270; J2060; J7030; 82040; 82247; 82310; 82374; 82435; 82565; 82947; 84075; 84132; 84155; 84295; 84450; 84460; 84520; J1815

== ENCOUNTER → 2018-09-08 | Outpatient (CLI) | payer MEDICARE ==
[~2018-09-08] MED LIST changes: +LORA-1456 PO; -RANI-366 PO; +RANI-54 PO; -TRAZ50TA34 PO; +TRAZ50TA52 PO
== END ==
LOC: US 08:32
PROVIDERS: ATTEND Nurse Practitioner Family
DX: Z02.9 Encounter for administrative examinations, unspecified (principal)